=== PATIENT | female | born 1990 | race American Indian/Alaskan Native ===

== ENCOUNTER 2016-09-30 21:42 | Emergency (ER) | payer MEDICAID, OTHER ==
[2016-10-01] MEDS ORDERED: BENADRYL PO ONE (03:37)
[2016-10-01] MEDS ORDERED: ZOFRAN ODT PO ONE (03:37)
[2016-10-01] MEDS ORDERED: TORADOL IM ONE (03:37)
--- NOTE | 2016-10-01 04:41 | Emergency Department Report ---
HPI - General Chief Complaint: Wound/Laceration Time Seen by Provider: 10/01/16 03:30 - HPI HPI: 26-year-old female presents today with a laceration to her lower lip and headache post fall. Patient states that she tripped and fell, hitting her lip on the floor 2100 hrs. yesterday. Patient states that she chipped her tooth which caught the laceration to her inner lower lip. Denies head injury or loss of consciousness. Positive for history of headache and states that this headache feels similar. Denies trying any medication for pain relief. Denies fever, chills, nausea, vomiting, chest pain, shortness of breath, abdominal pain , visual changes, dizziness, confusion. ED Past Medical Hx - Past Medical History Previous Medical History?: No Hx Hypertension: No Hx Congestive Heart Failure: No Hx Diabetes: No Hx Deep Vein Thrombosis: No Hx Renal Disease: No Hx Sickle Cell Disease: No Hx Seizures: No Hx Asthma: No Hx HIV: No - Surgical History Past Surgical History?: Yes Additional Surgical History: - Social History Smoking Status: Current Every Day Smoker Substance Use Type: Alcohol - Medications Home Medications: Home Medications Medication Instructions Recorded Confirmed Last Taken Type Docusate Sodium [Colace] 100 mg PO BID PRN #60 capsule 03/13/16 Unknown Rx Ibuprofen [Motrin] 800 mg PO Q8HR PRN #60 tablet 03/13/16 Unknown Rx oxyCODONE /ACETAMINOPHEN [Percocet 1 tab PO Q6HR PRN #45 tablet 03/13/16 Unknown Rx 5/325] Naproxen [Naprosyn] 500 mg PO BID #30 tablet 10/01/16 Unknown Rx ED Review of Systems ROS: Stated complaint: FALL/MOUTH INJURY Other details as noted in HPI Constitutional: denies: chills, fever, malaise Eyes: denies: eye pain ENT: denies: ear pain, throat pain, congestion Respiratory: denies: cough, shortness of breath, wheezing Cardiovascular: denies: chest pain, palpitations Endocrine: no symptoms reported Gastrointestinal: denies: abdominal pain, nausea, vomiting Skin: denies: rash Neurological: headache. denies: weakness Physical Exam - Physical Exam Vital Signs: Vital Signs 09/30/16 22:18 Temperature 98.9 F Pulse Rate 73 Respiratory 16 Rate Blood Pressure 129/86 O2 Sat by Pulse 100 Oximetry Physical Exam: GENERAL: The patient is well-developed and well-nourished. Patient is in NAD. HEAD: Normocephalic. Atraumatic. EYES: Extraocular motions are intact, PERRL. NOSE: Normal nasal mucosa with no nasal discharge. THROAT: No erythema, swelling or exudates. LIP: 1 cm irregular superficial laceration noted to mid inner lower lip. No active bleeding. Positive for edema. NECK: full range of motion. No midline or paraspinal tenderness to palpation. CHEST/LUNGS: Clear to auscultation throughout. HEART/CARDIOVASCULAR: Regular rate and rhythm. No murmurs, rubs or gallops. ABDOMEN: Abdomen is soft, nontender. Bowel sounds normoactive. No guarding or rebound tenderness. EXTREMITIES: Full range of motion. Peripheral pulses intact. Capillary refill less than 2 seconds. NEURO: Alert and oriented x 3. Normal gait. Symmetrical strength and sensation. Cerebellar testing normal. GCS score of 15. ED Course Vital Signs 09/30/16 22:18 Temperature 98.9 F Pulse Rate 73 Respiratory 16 Rate Blood Pressure 129/86 O2 Sat by Pulse 100 Oximetry ED Medical Decision Making - Lab Data Vital Signs 09/30/16 22:18 Temperature 98.9 F Pulse Rate 73 Respiratory 16 Rate Blood Pressure 129/86 O2 Sat by Pulse 100 Oximetry - Medical Decision Making 26-year-old female presents today with lip laceration and headache post fall. Patient was given Toradol, Benadryl and Zofran and reports pain control post medication. Patient is in no acute distress at this time. She will be discharged home and is encouraged to follow up with a primary care provider. She will be sent home on naproxen and is encouraged to return to the emergency room for any worsening symptoms. Critical care attestation.: If time is entered above; I have spent that time in minutes in the direct care of this critically ill patient, excluding procedure time. ED Disposition Clinical Impression: Lip laceration Qualifiers: Encounter type: initial encounter Qualified Code(s): S01.511A - Laceration without foreign body of lip, initial encounter Headache Qualifiers: Headache type: unspecified Headache chronicity pattern: acute headache Intractability: not intractable Qualified Code(s): R51 - Headache Disposition: DISCHARGED TO HOME OR SELFCARE Is pt being admited?: No Does the pt Need Aspirin: No Condition: Stable Instructions: Laceration (ED), Acute Headache (ED) Additional Instructions: Follow-up with primary care provider. Return to the emergency department if symptoms worsen. Prescriptions: Naproxen [Naprosyn] 500 mg PO BID #30 tablet Referrals: PRIMARY CARE, [Primary Care Provider] - 3-5 Days [facility] [Outside] - 3-5 Days JESUS MAURICIO MD [Staff Physician] - 3-5 Days Forms: Work/School Release Form(ED), Accompanied Note Time of Disposition: 04:44
[2016-10-01 05:09] VITALS: BP 111/67
== END 2016-10-01 05:08 | disposition home or self-care (01) ==
LOC: ED 21:42
DX: S01.511A Laceration without foreign body of lip, initial encounter (principal); R51 Headache; F17.200 Nicotine dependence, unspecified, uncomplicated; W01.198A Fall on same level from slipping, tripping and stumbling with subsequent striking against other object, initial encounter; Y93.89 Activity, other specified; Y99.8 Other external cause status; Y92.89 Other specified places as the place of occurrence of the external cause
CPT/HCPCS: 96372; 99282; J1885; Q0162